=== PATIENT | female | born 1995 | race Caucasian/White ===

== ENCOUNTER 2016-10-04 23:37 | Emergency (ER) | payer SELFPAY ==
[~2016-10-04] VITALS: Ht 160 cm; Wt 63.0 kg
[2016-10-05] MEDS ORDERED: IBUPROFEN 600MG TABLET PO ONE (02:15)
[2016-10-05 05:10] VITALS: BP 120/84
== END 2016-10-05 05:15 | disposition home or self-care (01) ==
LOC: ER 23:37
DX: S96.919A Strain of unspecified muscle and tendon at ankle and foot level, unspecified foot, initial encounter (principal); Y08.89XA Assault by other specified means, initial encounter; Y93.89 Activity, other specified; Y92.89 Other specified places as the place of occurrence of the external cause; Y99.8 Other external cause status
CPT/HCPCS: 29515; 73630; 81025; 99284